=== PATIENT | female | born 1995 | race Caucasian/White ===

== ENCOUNTER 2016-10-30 06:53 | Inpatient (IN) | payer MEDICAID ==
[2016-10-30] MEDS ORDERED: Sodium Chloride 0.9% 10 ML Syringe FLUSH PRN (07:22)
[2016-10-30] MEDS: Lactated Ringers 1,000 ML IV SCH ×3 (07:30→13:31)
[2016-10-30] MEDS ORDERED: Nalbuphine 20 MG/1 ML Amp IVPUSH PRN (08:10)
[2016-10-30] MEDS ORDERED: diphenhydrAMINE 50 MG/ML SDV IVPUSH PRN (08:13)
[2016-10-30] MEDS ORDERED: ePHEDrine 50 MG/ML SDV IVPUSH PRN (08:13)
[2016-10-30] MEDS ORDERED: fentaNYL 100 MCG/2 ML SDV EPIDUR PRN (08:13)
[2016-10-30] MEDS ORDERED: Bupivacaine/fentaNYL/NS 100 ML Bag EPIDUR SCH (08:15)
--- NOTE | 2016-10-30 08:42 | PCM.PREANE ---
Preanesthetic Assessment - Anesthesia/Transfusion/Family Hx Anesthesia History: Prior Anesthesia Without Reaction Family History of Anesthesia Reaction: No Transfusion History: No Prior Transfusion(s) - Review of Systems General: No Symptoms Pulmonary: No Symptoms Cardiovascular: No Symptoms Gastrointestinal: No symptoms Neurological: No Symptoms Other: Reports: None - Physical Assessment O2 Sat by Pulse Oximetry: 99 Respiratory Rate: 18 Blood Pressure: 113/53 Vital Signs: Last Vital Signs Temp 98.6 F 10/30/16 07:22 Pulse 78 10/30/16 07:22 Resp 18 10/30/16 07:22 BP 127/68 10/30/16 07:22 Pulse Ox Height: 5 ft 1 in Weight: 75.977 kg ASA Class: 2 Mental Status: Alert & Oriented x3 Airway Class: Mallampati = 2 Dentition: Reports: Normal Dentition Thyro-Mental Finger Breadths: 3 Mouth Opening Finger Breadths: 3 ROM/Head Extension: Full Lungs: Clear to auscultation, Normal respiratory effort Cardiovascular: Regular Rate, Regular Rhythm - Lab Values: Laboratory Last Values WBC 9.33 K/mm3 (3.98-10.04) 10/30/16 07:55 RBC 3.90 M/mm3 (3.98-5.22) L 10/30/16 07:55 Hgb 11.9 gm/L (11.2-15.7) 10/30/16 07:55 Hct 35.9 % (34.1-44.9) 10/30/16 07:55 MCV 92.1 fl (79.4-94.8) 10/30/16 07:55 MCH 30.5 pg (25.6-32.2) 10/30/16 07:55 MCHC 33.1 g/dl (32.2-35.5) 10/30/16 07:55 RDW Std Deviation 47.0 fL (36.4-46.3) H 10/30/16 07:55 Plt Count 199 K/mm3 (182-369) 10/30/16 07:55 MPV 10.3 fl (9.4-12.3) 10/30/16 07:55 Blood Type AB POSITIVE 10/30/16 07:55 - Allergies Allergies/Adverse Reactions: Allergies Allergy/AdvReac Type Severity Reaction Status Date / Time No Known Allergies Allergy Verified 10/30/16 07:37 - Blood Blood Available: No - Acknowledgements Anesthesia Type Planned: Epidural Pt an Appropriate Candidate for the Planned Anesthesia: Yes Alternatives and Risks of Anesthesia Discussed w Pt/Guardian: Yes Pt/Guardian Understands and Agrees with Anesthesia Plan: Yes PreAnesthesia Questionnaire Cardiovascular History: Reports: None Respiratory History: Reports: None 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: Reports: GERD (with preg) : 2 (40 weeks) Para: 1 Musculoskeletal History: Reports: None Oncologic (Cancer) History: Reports: None - History Comment History Comment: vits and iron for home meds - SUBSTANCE USE Smoking Status *Q: Former Smoker (quit 3 years ago) Tobacco Use Within Last Twelve Months: No Second Hand Smoke Exposure: Yes Days Per Week of Alcohol Use: 0 Recreational Drug Use History: No - CURRENT (IN HOUSE) MEDS Current Meds: Current Medications Diphenhydramine HCl (Benadryl) 25 mg IVPUSH Q6H PRN PRN Reason: pruritis Ephedrine Sulfate (Ephedrine Sulfate) 5 mg IVPUSH ASDIRECTED PRN PRN Reason: Hypotension Fentanyl (Sublimaze) 100 mcg EPIDUR Q3H PRN PRN Reason: Pain Last Admin: 10/30/16 08:37 Dose: 100 mcg Fentanyl/Bupivacaine HCl (Fentanyl/Bupivacaine/Ns 2 Mcg-0.125% 100 Ml) 100 ml EPIDUR ASDIRECTED [facility] Last Admin: 10/30/16 08:37 Dose: 100 ml Lactated Ringer's (Ringers, Lactated) 1,000 mls @ 100 mls/hr IV ASDIRECTED [facility] Last Admin: 10/30/16 07:30 Dose: 100 mls/hr Nalbuphine HCl (Nubain) 10 mg IVPUSH Q2H PRN PRN Reason: Pain (moderate 4-6) Sodium Chloride (Saline Flush) 10 ml FLUSH ASDIRECTED PRN PRN Reason: Keep Vein Open Preanesthetic Assessment - PHYSICAL ASSESSMENT RR: 18 Vital Signs: Last Vital Signs Temp 98.6 F 10/30/16 07:22 Pulse 78 10/30/16 07:22 Resp 18 10/30/16 07:22 BP 127/68 10/30/16 07:22 Pulse Ox Height: 5 ft 1 in Weight: 75.977 kg - LAB Values: Laboratory Last Values WBC 9.33 K/mm3 (3.98-10.04) 10/30/16 07:55 RBC 3.90 M/mm3 (3.98-5.22) L 10/30/16 07:55 Hgb 11.9 gm/L (11.2-15.7) 10/30/16 07:55 Hct 35.9 % (34.1-44.9) 10/30/16 07:55 MCV 92.1 fl (79.4-94.8) 10/30/16 07:55 MCH 30.5 pg (25.6-32.2) 10/30/16 07:55 MCHC 33.1 g/dl (32.2-35.5) 10/30/16 07:55 RDW Std Deviation 47.0 fL (36.4-46.3) H 10/30/16 07:55 Plt Count 199 K/mm3 (182-369) 10/30/16 07:55 MPV 10.3 fl (9.4-12.3) 10/30/16 07:55 Blood Type AB POSITIVE 10/30/16 07:55 - ALLERGIES Allergies/Adverse Reactions: Allergies Allergy/AdvReac Type Severity Reaction Status Date / Time No Known Allergies Allergy Verified 10/30/16 07:37
[2016-10-30] MEDS ORDERED: Oxytocin/Lactated Ringers 10 UNIT/1,000 ML BAG IV SCH (11:00)
--- NOTE | 2016-10-30 14:12 | PCM.LDHP ---
L&D History of Present Illness - General Date of Service: 10/30/16 Admit Problem/Dx: Patient Status Order with Admit Dx/Problem 10/30/16 07:35 Patient Status [ADT] Routine Admission Diagnosis/Problem Admission Diagnosis/Problem Source of Information: Patient History Limitations: Reports: No limitations - History of Present Illness Introduction:: 21 year old at 40w0d here in active labor with some bloody show. 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: Musculoskeletal History: Reports: None Oncologic (Cancer) History: Reports: None - Infectious Disease History Infectious Disease History: Reports: Chicken pox - History Comment History Comment: vits and iron for home meds Social & Family History - Tobacco Use Smoking Status *Q: Former Smoker (quit 3 years ago) Years of Tobacco use: 2 Packs/Tins Daily: 0.2 Used Tobacco, but Quit: Yes Month Tobacco Last Used: 03/02/2016 Second Hand Smoke Exposure: Yes - Caffeine Use Caffeine Use: Reports: Coffee Other Caffeine Use: one cup per week - Alcohol Use Days Per Week of Alcohol Use: 0 - Recreational Drug Use Recreational Drug Use: No H&P Review of Systems - Review of Systems: Review Of Systems: See Below General: Reports: no symptoms HEENT: Reports: no symptoms Pulmonary: Reports: No Symptoms Cardiovascular: Reports: no symptoms Gastrointestinal: Reports: No symptoms Genitourinary: Reports: no symptoms Musculoskeletal: Reports: no symptoms Skin: Reports: no symptoms Psychiatric: Reports: no symptoms Neurological: Reports: No Symptoms Hematologic/Lymphatic: Reports: no symptoms Immunologic: Reports: no symptoms L&D Exam - Exam Exam: See Below - Vital Signs Vital Signs: Last Vital Signs Temp 37.0 C 10/30/16 07:22 Pulse 78 10/30/16 07:22 Resp 18 10/30/16 08:42 BP 113/53 L 10/30/16 08:42 Pulse Ox 99 10/30/16 08:42 Weight: 75.977 kg - OB Specific Contraction Intensity: Moderate movement: active heart tones: present - Stephen Score Stephen Score Cervix Position: Midposition Stephen Score Consistency: Medium Stephen Score Effacement: 51-70% Stephen Score Dilation: 3-4 cm Stephen Score Infant's Station: -1 ,0 Stephen Score Total: 8 - Exam General: alert HEENT: Conjunctiva clear Neck: supple, trachea midline Cardiovascular: regular rate, regular rhythm Abdomen: normal bowel sounds, soft Genitourinary: Normal external exam Back Exam: normal inspection Extremities: normal inspection Skin: warm, dry, intact Neurological: cranial nerves intact, reflexes equal bilateral DTR: 1+: achilles (R) Psychiatric: alert, normal affect, normal mood - Patient Data Lab Results last 24 hrs: Laboratory Results - last 24 hr 10/30/16 10/30/16 Range/Units 07:55 07:55 WBC 9.33 (3.98-10.04) K/mm3 RBC 3.90 L (3.98-5.22) M/mm3 Hgb 11.9 (11.2-15.7) gm/L Hct 35.9 (34.1-44.9) % MCV 92.1 (79.4-94.8) fl MCH 30.5 (25.6-32.2) pg MCHC 33.1 (32.2-35.5) g/dl RDW Std Deviation 47.0 H (36.4-46.3) fL Plt Count 199 (182-369) K/mm3 MPV 10.3 (9.4-12.3) fl Blood Type AB POSITIVE Gel Antibody Screen Negative Result Diagrams: 10/30/16 07:55 Problem List Initiated/Reviewed/Updated: Yes Orders Last 24hrs: Active Orders 24 hr Category Date Time Status Patient Status [ADT] Routine ADT 10/30/16 07:35 Active Activity as Tolerated [RC] PFP Care 10/30/16 07:22 Active Communication Order [RC] ASDIRECTED Care 10/30/16 07:22 Active Heart Tones [RC] ASDIRECTED Care 10/30/16 07:22 Active Notify Provider [RC] ASDIRECTED Care 10/30/16 08:13 Active Notify Provider [RC] PFP Care 10/30/16 07:22 Active Notify Provider [RC] PRN Care 10/30/16 07:22 Active Peripheral IV Care [RC] . DIRECTED Care 10/30/16 07:22 Active Vital Signs [RC] PER UNIT ROUTINE Care 10/30/16 07:22 Active Regular Diet [DIET] Diet 10/30/16 Breakfast Active PATIENT RETYPE [BBK] Stat Lab 10/30/16 07:55 Results TYPE AND SCREEN [BBK] Stat Lab 10/30/16 07:55 Results Bupivacaine/fentaNYL/NS [fentaNYL/Bupivacaine/NS 2 MCG- Med 10/30/16 08:15 Active 0.125% 100 ML] 100 ml EPIDUR ASDIRECTED Lactated Ringers [Ringers, Lactated] 1,000 ml Med 10/30/16 07:30 Active IV ASDIRECTED Nalbuphine [Nubain] Med 10/30/16 08:10 Active 10 mg IVPUSH Q2H PRN Oxytocin/Lactated Ringers [Pitocin in LR 10 Units/1,000 Med 10/30/16 11:00 Active ML] 10 unit in 1,000 ml IV TITRATE Sodium Chloride 0.9% [Saline Flush] Med 10/30/16 07:22 Active 10 ml FLUSH ASDIRECTED PRN diphenhydrAMINE [Benadryl] Med 10/30/16 08:13 Active 25 mg IVPUSH Q6H PRN ePHEDrine [ePHEDrine Sulfate] Med 10/30/16 08:13 Active 5 mg IVPUSH ASDIRECTED PRN fentaNYL [Sublimaze] Med 10/30/16 08:13 Active 100 mcg EPIDUR Q3H PRN Electronic Heart Tones Ext w TOCO [WOMSER] Oth 10/30/16 07:22 Ordered Routine Electronic Heart Tones Internal [WOMSER] Per Unit Oth 10/30/16 07:22 Ordered Routine Peripheral IV Insertion Adult [OM.PC] Routine Oth 10/30/16 07:22 Ordered Resuscitation Status Routine Resus Stat 10/30/16 07:22 Ordered Medication Orders Diphenhydramine HCl (Benadryl) 25 mg IVPUSH Q6H PRN PRN Reason: pruritis Ephedrine Sulfate (Ephedrine Sulfate) 5 mg IVPUSH ASDIRECTED PRN PRN Reason: Hypotension Fentanyl (Sublimaze) 100 mcg EPIDUR Q3H PRN PRN Reason: Pain Last Admin: 10/30/16 08:37 Dose: 100 mcg Fentanyl/Bupivacaine HCl (Fentanyl/Bupivacaine/Ns 2 Mcg-0.125% 100 Ml) 100 ml EPIDUR ASDIRECTED [facility] Last Admin: 10/30/16 08:37 Dose: 100 ml Lactated Ringer's (Ringers, Lactated) 1,000 mls @ 100 mls/hr IV ASDIRECTED [facility] Last Admin: 10/30/16 13:31 Dose: 100 mls/hr Infusion: 10/30/16 13:31 Dose: 100 mls/hr Admin: 10/30/16 09:21 Dose: 100 mls/hr Infusion: 10/30/16 09:21 Dose: 100 mls/hr Admin: 10/30/16 07:30 Dose: 100 mls/hr Oxytocin/Lactated Ringer's (Pitocin In Lr 10 Units/1,000 Ml) 10 unit in 1,000 mls @ 500 mls/hr IV TITRATE [facility] PRN Reason: Protocol Last Admin: 10/30/16 13:43 Dose: 500 ml/hr, 500 mls/hr Nalbuphine HCl (Nubain) 10 mg IVPUSH Q2H PRN PRN Reason: Pain (moderate 4-6) Sodium Chloride (Saline Flush) 10 ml FLUSH ASDIRECTED PRN PRN Reason: Keep Vein Open Assessment/Plan Comment:: Term labor.
[2016-10-30] MEDS ORDERED: Benzocaine/Menthol 20%-0.5% Spray 56 GM Canister TOP PRN (14:39)
[2016-10-30] MEDS ORDERED: Docusate Sodium 100 MG Cap PO PRN (14:39)
[2016-10-30] MEDS ORDERED: Lanolin 100% Cream 7 GM Tube TOP PRN (14:39)
[2016-10-30] MEDS ORDERED: Witch Hazel Medicated Pads 100/Jar TOP PRN (14:39)
[2016-10-30] MEDS: Ibuprofen 600 MG Tab PO PRN (16:21)
[2016-10-30] MEDS ORDERED: Bupivacaine 0.25% 10 ML SDV ONE (22:22)
[2016-10-31] MEDS: Ibuprofen 600 MG Tab PO PRN ×2 (00:55→12:04)
--- NOTE | 2016-10-31 07:31 | PCM48HPAN ---
Post Anesthesia Note - EVALUATION WITHIN 48HRS OF ANESTHETIC Vital Signs in Normal Range: Yes Patient Participated in Evaluation: Yes Respiratory Function Stable: Yes Airway Patent: Yes Cardiovascular Function Stable: Yes Hydration Status Stable: Yes Pain Control Satisfactory: Yes Nausea and Vomiting Control Satisfactory: Yes Mental Status Recovered: Yes
--- NOTE | 2016-10-31 08:22 | PCM.DCSUM1 ---
Discharge Summary - Discharge Data Discharge Date: 10/31/16 Discharge Disposition: Home, Self-Care 01 Condition: Good - Patient Summary/Data Operative Procedure(s) Performed: Hospital Course: Admitted in labor. Unremarkable delivery and - Patient Instructions Diet: Usual Diet as Tolerated Activity: No Strenuous Activities Activity, Other: pelvic rest Driving: May Drive Today Showering/Bathing: May Shower Notify Provider of: Fever, Increased Pain, Swelling and Redness, Drainage, Nausea and/or Vomiting - Discharge Plan Home Medications: Home Meds Vits #90/Iron Fum/FA [ Formula] 10/30/16 [History] Referrals: Maricel Mcgregor MD [Physician] - (6 weeks) - Discharge Summary/Plan Comment DC Time >30 min.: No - Patient Data Vitals - Most Recent: Last Vital Signs Temp 36.7 C 10/31/16 04:34 Pulse 72 10/31/16 04:34 Resp 16 10/31/16 04:34 BP 125/74 10/31/16 04:34 Pulse Ox 96 10/31/16 04:34 Weight - Most Recent: 75.977 kg Lab Results - Last 24 hrs: Laboratory Results - last 24 hr 10/30/16 Range/Units 07:55 Blood Type AB POSITIVE Gel Antibody Screen Negative Med Orders - Current: Current Medications Benzocaine/Menthol (Dermoplast Pain Relief [place]) 0 gm TOP ASDIRECTED PRN PRN Reason: Perineal Comfort Measure Last Admin: 10/30/16 15:54 Dose: 1 applic Docusate Sodium (Colace) 100 mg PO BID PRN PRN Reason: Constipation Emollient Ointment (Lansinoh Hpa) 0 gm TOP ASDIRECTED PRN PRN Reason: Sore Nipples Last Admin: 10/30/16 20:01 Dose: 1 tube Ibuprofen (Motrin) 600 mg PO Q6H PRN PRN Reason: Mild pain or fever Last Admin: 10/31/16 00:55 Dose: 600 mg Witch Katelin (Tucks) 1 pad TOP ASDIRECTED PRN PRN Reason: Hemorrhoid pain Last Admin: 10/30/16 15:54 Dose: 1 applic Discontinued Medications Diphenhydramine HCl (Benadryl) 25 mg IVPUSH Q6H PRN PRN Reason: pruritis Ephedrine Sulfate (Ephedrine Sulfate) 5 mg IVPUSH ASDIRECTED PRN PRN Reason: Hypotension Fentanyl (Sublimaze) 100 mcg EPIDUR Q3H PRN PRN Reason: Pain Last Admin: 10/30/16 08:37 Dose: 100 mcg Fentanyl/Bupivacaine HCl (Fentanyl/Bupivacaine/Ns 2 Mcg-0.125% 100 Ml) 100 ml EPIDUR ASDIRECTED [facility] Last Admin: 10/30/16 08:37 Dose: 100 ml Lactated Ringer's (Ringers, Lactated) 1,000 mls @ 100 mls/hr IV ASDIRECTED [facility] Last Admin: 10/30/16 13:31 Dose: 100 mls/hr Oxytocin/Lactated Ringer's (Pitocin In Lr 10 Units/1,000 Ml) 10 unit in 1,000 mls @ 500 mls/hr IV TITRATE [facility] PRN Reason: Protocol Last Admin: 10/30/16 13:43 Dose: 500 ml/hr, 500 mls/hr Nalbuphine HCl (Nubain) 10 mg IVPUSH Q2H PRN PRN Reason: Pain (moderate 4-6) Sodium Chloride (Saline Flush) 10 ml FLUSH ASDIRECTED PRN PRN Reason: Keep Vein Open *Q Meaningful Use (DIS) - VTE *Q VTE Criteria *Q: - Stroke *Q Stroke Criteria *Q: - AMI *Q AMI Criteria *Q:
[2016-10-31 12:08] VITALS: BP 118/69
== END 2016-10-31 15:15 | disposition home or self-care (01) | DRG 775 ==
LOC: JD.OBCHECK 06:53 → JD.OB 06:55 → JD.OBCHECK 07:34 → OBSVTOIN 13:41 → JD.OB 13:41
PROVIDERS: ADMIT Obstetrics & Gynecology; ATTEND Obstetrics & Gynecology
PROC: 10E0XZZ Delivery of Products of Conception, External Approach (ICD-10-PCS; principal; 2016-10-30)
PROC: 10907ZC Drainage of Amniotic Fluid, Therapeutic from Products of Conception, Via Natural or Artificial Opening (ICD-10-PCS; 2016-10-30)
PROC: 00HU33Z Insertion of Infusion Device into Spinal Canal, Percutaneous Approach (ICD-10-PCS; 2016-10-30)
PROC: 3E0R3CZ (ICD-10-PCS; 2016-10-30)
DX: O80 Encounter for full-term uncomplicated delivery (principal); Z3A.40 40 weeks gestation of pregnancy; Z37.0 Single live birth; Z87.891 Personal history of nicotine dependence
CPT/HCPCS: 01967; 36415; 85027; 86850; 86900; 86901; A9270-GY; J2590; J3010; J7120

== ENCOUNTER 2021-07-07 14:15 | Inpatient (IN) | payer OTHER ==
[~2021-07-07 14:15] MED LIST: Bupivacaine 0.25% 10 ML SDV ONE; Lidocaine 1.5% with EPINEPHrine 1:200,000 5 ML Amp ONE
[2021-07-07] MEDS ORDERED: Nalbuphine 10 MG/1 ML Vial IVPUSH PRN (14:20)
[2021-07-07] MEDS ORDERED: Lidocaine 1% 50 ML MDV INJECT ONE (14:20)
[2021-07-07] MEDS ORDERED: Ondansetron 4 MG/2 ML SDV IVPUSH PRN (14:20)
[2021-07-07] MEDS ORDERED: Sodium Chloride 0.9% 10 ML Syringe FLUSH PRN (14:20)
[2021-07-07] MEDS ORDERED: fentaNYL 100 MCG/2 ML SDV EPIDUR PRN (14:25)
[2021-07-07] MEDS ORDERED: Bupivacaine/fentaNYL/NS 100 ML Bag EPIDUR PRN (14:25)
[2021-07-07] MEDS ORDERED: diphenhydrAMINE 50 MG/ML SDV IVPUSH PRN (14:25)
[2021-07-07] MEDS ORDERED: ePHEDrine 50 MG/ML SDV IVPUSH PRN (14:25)
--- NOTE | 2021-07-07 14:27 | PCM.PREANE ---
Preanesthetic Assessment - Anesthesia/Transfusion/Family Hx Anesthesia History: Prior Anesthesia Without Reaction Transfusion History: No Prior Transfusion(s) - Review of Systems General: No Symptoms Pulmonary: No Symptoms Cardiovascular: No Symptoms Gastrointestinal: No Symptoms Neurological: No Symptoms Other: Reports: None - Physical Assessment ASA Class: 2 Mental Status: Alert & Oriented x3 Airway Class: Mallampati = 3 Dentition: Reports: Normal Dentition Thyro-Mental Finger Breadths: 3 Mouth Opening Finger Breadths: 3 ROM/Head Extension: Full Lungs: Clear to Auscultation, Normal Respiratory Effort Cardiovascular: Regular Rate, Regular Rhythm - Lab Values: Laboratory Last Values WBC 6.46 K/mm3 (3.98-10.04) 07/07/21 13:04 RBC 4.01 M/mm3 (3.98-5.22) 07/07/21 13:04 Hgb 12.8 gm/dl (11.2-15.7) 07/07/21 13:04 Hct 38.0 % (34.1-44.9) 07/07/21 13:04 MCV 94.8 fl (79.4-94.8) 07/07/21 13:04 MCH 31.9 pg (25.6-32.2) 07/07/21 13:04 MCHC 33.7 g/dl (32.2-35.5) 07/07/21 13:04 RDW Std Deviation 43.0 fL (36.4-46.3) 07/07/21 13:04 Plt Count 204 K/mm3 (182-369) 07/07/21 13:04 MPV 9.9 fl (9.4-12.3) 07/07/21 13:04 - Allergies Allergies/Adverse Reactions: Allergies Allergy/AdvReac Type Severity Reaction Status Date / Time No Known Allergies Allergy Verified 07/06/21 00:21 - Acknowledgements Anesthesia Type Planned: Epidural Pt an Appropriate Candidate for the Planned Anesthesia: Yes Alternatives and Risks of Anesthesia Discussed w Pt/Guardian: Yes Pt/Guardian Understands and Agrees with Anesthesia Plan: Yes PreAnesthesia Questionnaire - Past Health History Medical/Surgical History: Denies Medical/Surgical History Cardiovascular History: Reports: None Respiratory History: Reports: None 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: Reports: GERD 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: Musculoskeletal History: Reports: None Oncologic (Cancer) History: Reports: None - Infectious Disease History Infectious Disease History: Reports: Chicken Pox - Past Surgical History HEENT Surgical History: Reports: Oral Surgery Other HEENT Surgeries/Procedures: [place] teeth extraction - History Comment History Comment: vits and iron for home meds - HOME MEDS Home Medications: Home Meds Vit 90/Iron Fum/Folic [ Formula] 1 tab PO DAILY 10/30/16 [History] - CURRENT (IN HOUSE) MEDS Current Meds: Current Medications Diphenhydramine HCl (Diphenhydramine 50 Mg/Ml Sdv) 25 mg IVPUSH Q6H PRN PRN Reason: pruritis Ephedrine Sulfate (Ephedrine 50 Mg/Ml Sdv) 5 mg IVPUSH ASDIRECTED PRN PRN Reason: Hypotension Fentanyl (Fentanyl 100 Mcg/2 Ml Sdv) 100 mcg EPIDUR Q3H PRN PRN Reason: Pain Fentanyl/Bupivacaine HCl (Bupivacaine/Fentanyl/Ns 100 Ml Bag) 100 ml EPIDUR ASDIRECTED PRN PRN Reason: Pain
[2021-07-07] MEDS ORDERED: Oxytocin/Lactated Ringers 10 UNIT/1,000 ML BAG IV SCH ×2 (14:30)
[2021-07-07] MEDS: Lactated Ringers 1,000 ML IV SCH ×3 (14:40→18:55)
--- NOTE | 2021-07-07 16:48 | PCM.LDHP ---
L&D History of Present Illness - General Date of Service: 07/07/21 Admit Problem/Dx: Patient Status Order with Admit Dx/Problem 07/07/21 14:22 Patient Status [ADT] Routine Admission Diagnosis/Problem Admission Diagnosis/Problem 39 weeks gestation of Source of Information: Patient History Limitations: Reports: No Limitations - History of Present Illness Introduction:: Patient is a 26 y/o at 39 6/7 wks who presents for IOL. Doing well. Currently rates contractions as a 2/10 after starting pitocin around 1430. 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: 2 LMP (Approximate): Hematologic History: Reports: Anemia - Infectious Disease History Infectious Disease History: Reports: Chicken Pox - Past Surgical History HEENT Surgical History: Reports: Oral Surgery Other HEENT Surgeries/Procedures: [place] teeth extraction Social & Family History - Family History Family Medical History: No Pertinent Family History - Tobacco Use Tobacco Use Status *Q: Former Tobacco User Years of Tobacco use: 2 Packs/Tins Daily: 0.2 Used Tobacco, but Quit: Yes Month/Year Tobacco Last Used: 02/2016 - Caffeine Use Caffeine Use: Reports: Coffee Other Caffeine Use: one cup per week - Alcohol Use Alcohol Use History: No - Recreational Drug Use Recreational Drug Use: No H&P Review of Systems - Review of Systems: Review Of Systems: See Below General: Reports: No Symptoms Pulmonary: Reports: No Symptoms Cardiovascular: Reports: No Symptoms Gastrointestinal: Reports: No Symptoms Genitourinary: Reports: No Symptoms Musculoskeletal: Reports: No Symptoms Neurological: Reports: No Symptoms L&D Exam - Exam Exam: See Below - Vital Signs Vital Signs: Last Vital Signs Temp 36.7 C 07/07/21 14:20 Pulse 107 H 07/07/21 14:20 Resp 16 07/07/21 14:20 BP 124/62 07/07/21 14:20 Pulse Ox 97 07/07/21 14:20 Weight: 82.1 kg - OB Specific Contraction Intensity: Mild to Moderate Movement: Active Heart Tones: Present Heart Tones per Min: 135 Heart Rate (FHR) Variability: Moderate (6-25 bpm) Presentation: Vertex - Stephen Score Stephen Score Cervix Position: Midposition Stephen Score Consistency: Soft Stephen Score Effacement: >80% Stephen Score Dilation: > 5 cm Stephen Score Infant's Station: -2 Stephen Score Total: 10 - Exam General: Alert, Oriented, Cooperative Lungs: Clear to Auscultation, Normal Respiratory Effort Cardiovascular: Regular Rate, Regular Rhythm GI/Abdominal Exam: Soft, Non-Tender Genitourinary: Normal external exam Extremities: Normal Inspection Skin: Warm, Dry, Intact - Patient Data Lab Results Last 24 hrs: Laboratory Results - last 24 hr 07/07/21 07/07/21 07/07/21 Range/Units 13:04 13:04 14:20 WBC 6.46 (3.98-10.04) K/mm3 RBC 4.01 (3.98-5.22) M/mm3 Hgb 12.8 (11.2-15.7) gm/dl Hct 38.0 (34.1-44.9) % MCV 94.8 (79.4-94.8) fl MCH 31.9 (25.6-32.2) pg MCHC 33.7 (32.2-35.5) g/dl RDW Std Deviation 43.0 (36.4-46.3) fL Plt Count 204 (182-369) K/mm3 MPV 9.9 (9.4-12.3) fl SARS-CoV-2 RNA (MERLY) Negative (NEGATIVE) Blood Type AB POSITIVE Gel Antibody Screen Negative Result Diagrams: 07/07/21 13:04 - Problem List (1) 39 weeks gestation of SNOMED Code(s): 55353297 ICD Code: Z3A.39 - 39 WEEKS GESTATION OF Status: Acute Current Visit: Yes Problem List Initiated/Reviewed/Updated: Yes Orders Last 24hrs: Active Orders 24 hr Category Date Time Status Patient Status [ADT] Routine ADT 07/07/21 14:22 Active Activity as Tolerated [RC] PFP Care 07/07/21 14:20 Active Communication Order [RC] ASDIRECTED Care 07/07/21 14:20 Active Notify Provider [RC] ASDIRECTED Care 07/07/21 14:25 Active Notify Provider [RC] PFP Care 07/07/21 14:20 Active Notify Provider [RC] PRN Care 07/07/21 14:20 Active Peripheral IV Care [RC] . DIRECTED Care 07/07/21 14:23 Active Vital Signs [RC] PER UNIT ROUTINE Care 07/07/21 14:20 Active Regular Diet [DIET] Diet 07/07/21 Lunch Active Bupivacaine/fentaNYL/NS [fentaNYL/Bupivacaine/NS 2 MCG- Med 07/07/21 14:25 Active 0.125% 100 ML] 100 ml EPIDUR ASDIRECTED PRN Lactated Ringers [Ringers, Lactated] 1,000 ml Med 07/07/21 14:30 Active IV ASDIRECTED Nalbuphine [Nubain] Med 07/07/21 14:20 Active 10 mg IVPUSH Q2H PRN Ondansetron [Zofran] Med 07/07/21 14:20 Active 4 mg IVPUSH Q4H PRN Oxytocin/Lactated Ringers [Pitocin in LR 10 Units/1,000 Med 07/07/21 14:30 Active ML] 10 unit in 1,000 ml IV .CONTINUOUS Oxytocin/Lactated Ringers [Pitocin in LR 10 Units/1,000 Med 07/07/21 14:30 Active ML] 10 unit in 1,000 ml IV TITRATE Sodium Chloride 0.9% [Saline Flush] Med 07/07/21 14:20 Active 10 ml FLUSH ASDIRECTED PRN diphenhydrAMINE [Benadryl] Med 07/07/21 14:25 Active 25 mg IVPUSH Q6H PRN ePHEDrine [ePHEDrine sulfate] Med 07/07/21 14:25 Active 5 mg IVPUSH ASDIRECTED PRN fentaNYL [Sublimaze] Med 07/07/21 14:25 Active 100 mcg EPIDUR Q3H PRN Electronic Heart Tones Ext w TOCO [WOMSER] Oth 07/07/21 14:20 Ordered Routine Electronic Heart Tones Internal [WOMSER] Per Unit Oth 07/07/21 14:20 Ordered Routine Peripheral IV Insertion Adult [OM.PC] Routine Oth 07/07/21 14:20 Ordered Resuscitation Status Routine Resus Stat 07/07/21 14:20 Ordered Medication Orders Diphenhydramine HCl (Diphenhydramine 50 Mg/Ml Sdv) 25 mg IVPUSH Q6H PRN PRN Reason: pruritis Ephedrine Sulfate (Ephedrine 50 Mg/Ml Sdv) 5 mg IVPUSH ASDIRECTED PRN PRN Reason: Hypotension Fentanyl (Fentanyl 100 Mcg/2 Ml Sdv) 100 mcg EPIDUR Q3H PRN PRN Reason: Pain Fentanyl/Bupivacaine HCl (Bupivacaine/Fentanyl/Ns 100 Ml Bag) 100 ml EPIDUR ASDIRECTED PRN PRN Reason: Pain Lactated Ringer's (Ringers, Lactated) 1,000 mls @ 100 mls/hr IV ASDIRECTED SON Last Admin: 07/07/21 14:40 Dose: 100 mls/hr Documented by: [email or web address] Oxytocin/Lactated Ringer's (Pitocin In Lr 10 Units/1,000 Ml) 10 unit in 1,000 mls @ 500 mls/hr IV .CONTINUOUS SON Oxytocin/Lactated Ringer's (Pitocin In Lr 10 Units/1,000 Ml) 10 unit in 1,000 mls @ 12 mls/hr IV TITRATE SON; Protocol Last Admin: 07/07/21 14:40 Dose: 2 munits/min, 12 mls/hr Documented by: FICEKEL Nalbuphine HCl (Nalbuphine 10 Mg/1 Ml Vial) 10 mg IVPUSH Q2H PRN PRN Reason: Pain Ondansetron HCl (Ondansetron 4 Mg/2 Ml Sdv) 4 mg IVPUSH Q4H PRN PRN Reason: Nausea/Vomiting Sodium Chloride (Sodium Chloride 0.9% 10 Ml Syringe) 10 ml FLUSH ASDIRECTED PRN PRN Reason: Keep Vein Open Assessment/Plan Comment:: * Labs previously done * GBS negative * On pitocin of 2. AROM done with release of large amount of clear fluid * Pain management per patient preference * Anticipate
--- NOTE | 2021-07-07 18:21 | PCM.PNLD ---
Labor Progress Note - VS & Meds Vital Signs: Last Vital Signs Temp 36.7 C 07/07/21 14:20 Pulse 107 H 07/07/21 14:20 Resp 16 07/07/21 14:20 BP 124/62 07/07/21 14:20 Pulse Ox 97 07/07/21 14:20 Active Medications: Current Medications Diphenhydramine HCl (Diphenhydramine 50 Mg/Ml Sdv) 25 mg IVPUSH Q6H PRN PRN Reason: pruritis Ephedrine Sulfate (Ephedrine 50 Mg/Ml Sdv) 5 mg IVPUSH ASDIRECTED PRN PRN Reason: Hypotension Fentanyl (Fentanyl 100 Mcg/2 Ml Sdv) 100 mcg EPIDUR Q3H PRN PRN Reason: Pain Last Admin: 07/07/21 17:16 Dose: 100 mcg Documented by: Fentanyl/Bupivacaine HCl (Bupivacaine/Fentanyl/Ns 100 Ml Bag) 100 ml EPIDUR ASDIRECTED PRN PRN Reason: Pain Last Admin: 07/07/21 17:16 Dose: 100 ml Documented by: Lactated Ringer's (Ringers, Lactated) 1,000 mls @ 100 mls/hr IV ASDIRECTED SON Last Admin: 07/07/21 17:15 Dose: 100 mls/hr Documented by: Oxytocin/Lactated Ringer's (Pitocin In Lr 10 Units/1,000 Ml) 10 unit in 1,000 mls @ 500 mls/hr IV .CONTINUOUS SON Oxytocin/Lactated Ringer's (Pitocin In Lr 10 Units/1,000 Ml) 10 unit in 1,000 mls @ 12 mls/hr IV TITRATE SON; Protocol Last Titration: 07/07/21 17:15 Dose: 0 munits/min, 0 mls/hr Documented by: Nalbuphine HCl (Nalbuphine 10 Mg/1 Ml Vial) 10 mg IVPUSH Q2H PRN PRN Reason: Pain Ondansetron HCl (Ondansetron 4 Mg/2 Ml Sdv) 4 mg IVPUSH Q4H PRN PRN Reason: Nausea/Vomiting Sodium Chloride (Sodium Chloride 0.9% 10 Ml Syringe) 10 ml FLUSH ASDIRECTED PRN PRN Reason: Keep Vein Open Discontinued Medications Lidocaine HCl (Lidocaine 1% 50 Ml Mdv) 50 ml INJECT ONETIME ONE Stop: 07/07/21 14:21 - Uterine Contractions Uterine Monitoring Mode: External [place] Contraction Intensity: Moderate to Strong - Monitoring Monitor Mode: External Ultrasound Heart Rate (FHR) Baseline: 130 Heart Rate (FHR) Variability: Moderate (6-25 bpm) Accelerations: Present, 15x15 Decelerations: None Strip Review: Category I - Vaginal Exam Dilation (cm): 6 - Labor Progress (Free Text) Labor Progress: Doing well. Had to do a second epidural attempt and was getting very uncomfortable. Now getting some relief.
--- NOTE | 2021-07-07 20:54 | PCM.DEL ---
L & D Note - General Info Date of Service: 07/07/21 - Delivery Note Labor: Induced by ARM, Induced by Oxytocin Delivery Outcome: Livebirth Infant Delivery Method: Spontaneous Vaginal Delivery-Single Infant Delivery Mode: Spontaneous Presentation: Right Occiput Anterior (ESPERANZA) Nuchal Cord: None Anesthesia Type: Epidural Amniotic Fluid Description: Clear Episiotomy Type: None Laceration: None Placenta: Intact, Spontaneous Cord: 3 Vessels Estimated Blood Loss: 100 Resuscitation Needed: Yes [place]: Bulb Syringe, Stimulated, Warmed, [place] Used, Warmer Used Delivery Comments (Free Text/Narrative):: Patient found to be complete and began pushing. With maternal pushing effort head delivered from ESPERANZA presentation. With gentle downward traction shoulders did not delivery. Patient put in [place] and downward pressure reapplied, but without delivery. Patient kept in McRobert's and suprapubic pressure applied. On 2nd application anterior shoulder delivered and remainder of quickly followed. Infant placed on maternal abdomen. Cord clamped and cut. Cord blood obtained. Placenta allowed time to separate and expelled intact. Inspection of perineum following delivery with no lacerations. - General Info Date of Service: 07/07/21 - Patient Data Vitals - Most Recent: Last Vital Signs Temp 36.7 C 07/07/21 14:20 Pulse 107 H 07/07/21 14:20 Resp 16 07/07/21 14:20 BP 124/62 07/07/21 14:20 Pulse Ox 97 07/07/21 14:20 Weight - Most Recent: 82.1 kg - Exam Urinary Catheter Total Time: 0Days 1Hours - Problem List & Annotations (1) 39 weeks gestation of SNOMED Code(s): 48591953 Code(s): Z3A.39 - 39 WEEKS GESTATION OF Status: Acute Current Visit: Yes (2) Shoulder dystocia, delivered, current hospitalization SNOMED Code(s): 175266597, 972660710 Code(s): O66.0 - OBSTRUCTED LABOR DUE TO SHOULDER DYSTOCIA Status: Acute Current Visit: Yes - Problem List Review Problem List Initiated/Reviewed/Updated: Yes - My Orders Last 24 Hours: My Active Orders 07/07/21 Lunch Regular Diet [DIET] 07/07/21 14:20 Activity as Tolerated [RC] PFP Communication Order [RC] ASDIRECTED Notify Provider [RC] PFP Notify Provider [RC] PRN Vital Signs [RC] PER UNIT ROUTINE Nalbuphine [Nubain] 10 mg IVPUSH Q2H PRN Ondansetron [Zofran] 4 mg IVPUSH Q4H PRN Sodium Chloride 0.9% [Saline Flush] 10 ml FLUSH ASDIRECTED PRN Electronic Heart Tones Ext w TOCO [WOMSER] Routine Electronic Heart Tones Internal [WOMSER] Per Unit Routine Peripheral IV Insertion Adult [OM.PC] Routine Resuscitation Status Routine 07/07/21 14:22 Patient Status [ADT] Routine 07/07/21 14:23 Peripheral IV Care [RC] . DIRECTED 07/07/21 14:30 Lactated Ringers [Ringers, Lactated] 1,000 ml IV ASDIRECTED Oxytocin/Lactated Ringers [Pitocin in LR 10 Units/1,000 ML] 10 unit in 1,000 ml IV .CONTINUOUS Oxytocin/Lactated Ringers [Pitocin in LR 10 Units/1,000 ML] 10 unit in 1,000 ml IV TITRATE 07/07/21 20:47 Patient Status Manage Transfer [TRANSFER] Routine - Assessment Assessment:: PPD#0 - Plan Plan:: * Routine cares * Bottle feeding * Discharge home in 2 days
[2021-07-07] MEDS ORDERED: Docusate Sodium 100 MG Cap PO PRN (21:53)
[2021-07-07] MEDS ORDERED: Benzocaine/Menthol 20%-0.5% Spray 78 GM Cannister TOP PRN (21:53)
[2021-07-07] MEDS ORDERED: Acetaminophen 325 MG Tab PO PRN (21:53)
[2021-07-07] MEDS: Ibuprofen 600 MG Tab PO PRN (22:05)
[2021-07-07] MEDS: Witch Hazel Medicated Pads 40/Jar TOP PRN (22:06)
[2021-07-08] MEDS: Ibuprofen 600 MG Tab PO PRN ×3 (05:24→23:35)
--- NOTE | 2021-07-08 06:50 | PCM48HPAN ---
Post Anesthesia Note - EVALUATION WITHIN 48HRS OF ANESTHETIC Vital Signs in Normal Range: Yes Patient Participated in Evaluation: Yes Respiratory Function Stable: Yes Airway Patent: Yes Cardiovascular Function Stable: Yes Hydration Status Stable: Yes Pain Control Satisfactory: Yes Nausea and Vomiting Control Satisfactory: Yes Mental Status Recovered: Yes Vital Signs: Last Vital Signs Temp 36.8 C 07/08/21 03:11 Pulse 107 H 07/07/21 14:20 Resp 14 07/08/21 03:11 BP 133/57 L 07/08/21 03:11 Pulse Ox 97 07/07/21 14:20
--- NOTE | 2021-07-08 07:36 | PCM.PNPP ---
- General Info Date of Service: 07/08/21 Functional Status: Reports: Pain Controlled, Tolerating Diet, Ambulating, Urinating - Review of Systems General: Reports: No Symptoms Pulmonary: Reports: No Symptoms Cardiovascular: Reports: No Symptoms Gastrointestinal: Reports: No Symptoms Genitourinary: Reports: No Symptoms Musculoskeletal: Reports: Back Pain, Other (pubic bone pain) - General Info Date of Service: 07/08/21 - Patient Data Vital Signs - Most Recent: Last Vital Signs Temp 36.8 C 07/08/21 03:11 Pulse 107 H 07/07/21 14:20 Resp 14 07/08/21 03:11 BP 133/57 L 07/08/21 03:11 Pulse Ox 97 07/07/21 14:20 Weight - Most Recent: 82.1 kg I&O - Last 24 Hours: Intake & Output 07/07/21 07/08/21 07/08/21 22:59 06:59 14:59 Output Total 300 175 Balance -300 -175 Lab Results - Last 24 Hours: Laboratory Results - last 24 hr 07/07/21 07/07/21 07/07/21 Range/Units 13:04 13:04 13:04 WBC 6.46 (3.98-10.04) K/mm3 RBC 4.01 (3.98-5.22) M/mm3 Hgb 12.8 (11.2-15.7) gm/dl Hct 38.0 (34.1-44.9) % MCV 94.8 (79.4-94.8) fl MCH 31.9 (25.6-32.2) pg MCHC 33.7 (32.2-35.5) g/dl RDW Std Deviation 43.0 (36.4-46.3) fL Plt Count 204 (182-369) K/mm3 MPV 9.9 (9.4-12.3) fl RPR Non-reactive (NONREACTIVE) SARS-CoV-2 RNA (MERLY) (NEGATIVE) Blood Type AB POSITIVE Gel Antibody Screen Negative 07/07/21 Range/Units 14:20 WBC (3.98-10.04) K/mm3 RBC (3.98-5.22) M/mm3 Hgb (11.2-15.7) gm/dl Hct (34.1-44.9) % MCV (79.4-94.8) fl MCH (25.6-32.2) pg MCHC (32.2-35.5) g/dl RDW Std Deviation (36.4-46.3) fL Plt Count (182-369) K/mm3 MPV (9.4-12.3) fl RPR (NONREACTIVE) SARS-CoV-2 RNA (MERLY) Negative (NEGATIVE) Blood Type Gel Antibody Screen Med Orders - Current: Current Medications Acetaminophen (Acetaminophen 325 Mg Tab) 650 mg PO Q4H PRN PRN Reason: mild pain or fever Benzocaine/Menthol (Benzocaine/Menthol 20%-0.5% [place] 78 Gm Cannister) 0 gm TOP ASDIRECTED PRN PRN Reason: Perineal Comfort Measure Last Admin: 07/07/21 22:06 Dose: 1 canister Documented by: Docusate Sodium (Docusate Sodium 100 Mg Cap) 100 mg PO BID PRN PRN Reason: Constipation Ibuprofen (Ibuprofen 600 Mg Tab) 600 mg PO Q6H PRN PRN Reason: Mild pain or fever Last Admin: 07/08/21 05:24 Dose: 600 mg Documented by: Ginna Thomason (Ginna Thomason Medicated Pads 40/Jar) 1 pad TOP ASDIRECTED PRN PRN Reason: Perineal Comfort Measure Last Admin: 07/07/21 22:06 Dose: 1 tub Documented by: Discontinued Medications Diphenhydramine HCl (Diphenhydramine 50 Mg/Ml Sdv) 25 mg IVPUSH Q6H PRN PRN Reason: pruritis Ephedrine Sulfate (Ephedrine 50 Mg/Ml Sdv) 5 mg IVPUSH ASDIRECTED PRN PRN Reason: Hypotension Fentanyl (Fentanyl 100 Mcg/2 Ml Sdv) 100 mcg EPIDUR Q3H PRN PRN Reason: Pain Last Admin: 07/07/21 17:16 Dose: 100 mcg Documented by: Fentanyl/Bupivacaine HCl (Bupivacaine/Fentanyl/Ns 100 Ml Bag) 100 ml EPIDUR ASDIRECTED PRN PRN Reason: Pain Last Admin: 07/07/21 17:16 Dose: 100 ml Documented by: Lactated Ringer's (Ringers, Lactated) 1,000 mls @ 100 mls/hr IV ASDIRECTED SON Last Admin: 07/07/21 18:55 Dose: 100 mls/hr Documented by: Oxytocin/Lactated Ringer's (Pitocin In Lr 10 Units/1,000 Ml) 10 unit in 1,000 mls @ 500 mls/hr IV .CONTINUOUS SON Oxytocin/Lactated Ringer's (Pitocin In Lr 10 Units/1,000 Ml) 10 unit in 1,000 mls @ 12 mls/hr IV TITRATE SON; Protocol Last Titration: 07/07/21 18:54 Dose: 2 munits/min, 12 mls/hr Documented by: Lidocaine HCl (Lidocaine 1% 50 Ml Mdv) 50 ml INJECT ONETIME ONE Stop: 07/07/21 14:21 Last Admin: 07/08/21 05:25 Dose: Not Given Documented by: Nalbuphine HCl (Nalbuphine 10 Mg/1 Ml Vial) 10 mg IVPUSH Q2H PRN PRN Reason: Pain Ondansetron HCl (Ondansetron 4 Mg/2 Ml Sdv) 4 mg IVPUSH Q4H PRN PRN Reason: Nausea/Vomiting Sodium Chloride (Sodium Chloride 0.9% 10 Ml Syringe) 10 ml FLUSH ASDIRECTED PRN PRN Reason: Keep Vein Open - Infant Interaction Disposition, : [place] in Room with Family Infant Interaction: Holding Infant Infant Feeding: Bottle Fed Infant Support Person: - Recovery Exam Fundal Tone: Firm Fundal Level: 1 Fingerbreadths Below Umbilicus Fundal Placement: Midline Lochia Amount: Small Lochia Color: Rubra/Red Perineum Description: Intact, Minimal Bruising/Swelling Bladder Status: Voiding - Exam General: Alert, Oriented, Cooperative GI/Abdominal Exam: Soft, Non-Tender - Problem List & Annotations (1) 39 weeks gestation of SNOMED Code(s): 07727627 Code(s): Z3A.39 - 39 WEEKS GESTATION OF Status: Acute Current Visit: Yes (2) Shoulder dystocia, delivered, current hospitalization SNOMED Code(s): 663019196, 503587212 Code(s): O66.0 - OBSTRUCTED LABOR DUE TO SHOULDER DYSTOCIA Status: Acute Current Visit: Yes - Problem List Review Problem List Initiated/Reviewed/Updated: Yes - My Orders Last 24 Hours: My Active Orders 07/07/21 14:20 Resuscitation Status Routine 07/07/21 Dinner Regular Diet [DIET] 07/07/21 21:53 Acetaminophen [TylenoL] 650 mg PO Q4H PRN Benzocaine/Menthol [Dermoplast Pain Relief 20%-0.5% [place]] See Dose Instructions TOP ASDIRECTED PRN Docusate Sodium [Colace] 100 mg PO BID PRN Ibuprofen [Motrin] 600 mg PO Q6H PRN witch [place] [Tucks] 1 pad TOP ASDIRECTED PRN Heat Therapy [OM.PC] PRN 07/07/21 21:53 Activity as Tolerated [RC] PER UNIT ROUTINE Up ad [place] [RC] ASDIRECTED Vital Signs [RC] ,,, Assess Lochia [WOMSER] Per Unit Routine Assess Uterine Involution [WOMSER] Per Unit Routine Breast Pump [WOMSER] Per Unit Routine Ice Therapy [OM.PC] Per Unit Routine Perineal Care [OM.PC] Per Unit Routine Peripheral IV Discontinue [OM.PC] Routine Sitz Bath [OM.PC] Per Unit Routine 07/08/21 07:35 Acetaminophen/HYDROcodone [[place] 325-10 MG] 1 - 2 tab PO Q6H PRN 07/08/21 21:53 Heat Therapy [OM.PC] PRN - Assessment Assessment:: PPD#1 - Plan Plan:: * Routine cares * Bottle feeding * Will add in lortab as patient with discomfort after suprapubic maneuvers performed yesterday * Discharge home tomorrow
[2021-07-08] MEDS: Acetaminophen/HYDROcodone 325-10 MG Tab PO PRN ×3 (09:05→21:46)
[2021-07-09] MEDS: Witch Hazel Medicated Pads 40/Jar TOP PRN (03:40)
[2021-07-09] MEDS: Ibuprofen 600 MG Tab PO PRN (05:42)
[2021-07-09] MEDS: Acetaminophen/HYDROcodone 325-10 MG Tab PO PRN (06:41)
--- NOTE | 2021-07-09 07:16 | PCM.DCSUM1 ---
Discharge Summary - Discharge Data Discharge Date: 07/09/21 Discharge Disposition: Home, Self-Care 01 Condition: Good - Referral to Home Health Primary Care Physician: Maricel Mcgregor MD - Discharge Diagnosis/Problem(s) (1) 39 weeks gestation of SNOMED Code(s): 22605861 ICD Code: Z3A.39 - 39 WEEKS GESTATION OF Status: Acute Current Visit: Yes (2) Shoulder dystocia, delivered, current hospitalization SNOMED Code(s): 973717286, 904296639 ICD Code: O66.0 - OBSTRUCTED LABOR DUE TO SHOULDER DYSTOCIA Status: Acute Current Visit: Yes - Patient Summary/Data Complications: None Consults: None Recommended Follow-up Testing/Procedures: Follow up in 3 weeks for check Hospital Course: 26 y/o at 39 6/7 wks presented for IOL. Done with pitocin and AROM. Progressed well. Underwent a vaginal delivery complicated by shoulder dystocia relieved with McRobert's and suprapubic pressure. See note. did well. Was discharged home on PPD#2 - Patient Instructions Diet: Regular Diet as Tolerated Activity: As Tolerated Activity, Other: Pelvic rset for 6 weeks Driving: May Drive Today Showering/Bathing: May Shower Showering/Bathing, Other: May Bathe Notify Provider of: Fever, Increased Pain, Swelling and Redness, Drainage, Nausea and/or Vomiting - Discharge Plan *PRESCRIPTION DRUG MONITORING PROGRAM REVIEWED*: No *COPY OF PRESCRIPTION DRUG MONITORING REPORT IN PATIENT [place]: No Home Medications: Home Meds Vit 90/Iron Fum/Folic [ Formula] 1 tab PO DAILY 10/30/16 [History] Docusate Sodium [Colace] 100 mg PO BID PRN cap 07/07/21 [Rx] Ibuprofen [Motrin] 600 mg PO Q6H PRN tablet 07/07/21 [Rx] Referrals: Maricel Mcgregor MD [Primary Care Provider] - (3 weeks for check ) - Discharge Summary/Plan Comment DC Time >30 min.: No Total # of Minutes for Discharge Time: 15 - Patient Data Vitals - Most Recent: Last Vital Signs Temp 36.5 C 07/09/21 02:29 Pulse 69 07/09/21 02:29 Resp 12 07/09/21 02:29 BP 113/51 L 07/09/21 02:29 Pulse Ox 96 07/09/21 02:29 Weight - Most Recent: 82.1 kg Med Orders - Current: Current Medications Acetaminophen (Acetaminophen 325 Mg Tab) 650 mg PO Q4H PRN PRN Reason: mild pain or fever Hydrocodone Bitart/Acetaminophen (Acetaminophen/Hydrocodone 325-10 Mg Tab) 1 - 2 tab PO Q6H PRN PRN Reason: Pain Last Admin: 07/09/21 06:41 Dose: 1 tab Documented by: Benzocaine/Menthol (Benzocaine/Menthol 20%-0.5% [place] 78 Gm Cannister) 0 gm TOP ASDIRECTED PRN PRN Reason: Perineal Comfort Measure Last Admin: 07/07/21 22:06 Dose: 1 canister Documented by: Docusate Sodium (Docusate Sodium 100 Mg Cap) 100 mg PO BID PRN PRN Reason: Constipation Ibuprofen (Ibuprofen 600 Mg Tab) 600 mg PO Q6H PRN PRN Reason: Mild pain or fever Last Admin: 07/09/21 05:42 Dose: 600 mg Documented by: Ginna Thomason (Ginna Thomason Medicated Pads 40/Jar) 1 pad TOP ASDIRECTED PRN PRN Reason: Perineal Comfort Measure Last Admin: 07/09/21 03:40 Dose: 1 tub Documented by: Discontinued Medications Bupivacaine HCl (Bupivacaine 0.25% 10 Ml Sdv) 10 ml .ROUTE .STK-MED ONE Stop: 07/07/21 00:01 Diphenhydramine HCl (Diphenhydramine 50 Mg/Ml Sdv) 25 mg IVPUSH Q6H PRN PRN Reason: pruritis Ephedrine Sulfate (Ephedrine 50 Mg/Ml Sdv) 5 mg IVPUSH ASDIRECTED PRN PRN Reason: Hypotension Fentanyl (Fentanyl 100 Mcg/2 Ml Sdv) 100 mcg EPIDUR Q3H PRN PRN Reason: Pain Last Admin: 07/07/21 17:16 Dose: 100 mcg Documented by: Fentanyl/Bupivacaine HCl (Bupivacaine/Fentanyl/Ns 100 Ml Bag) 100 ml EPIDUR ASDIRECTED PRN PRN Reason: Pain Last Admin: 07/07/21 17:16 Dose: 100 ml Documented by: Lactated Ringer's (Ringers, Lactated) 1,000 mls @ 100 mls/hr IV ASDIRECTED SON Last Admin: 07/07/21 18:55 Dose: 100 mls/hr Documented by: Oxytocin/Lactated Ringer's (Pitocin In Lr 10 Units/1,000 Ml) 10 unit in 1,000 mls @ 500 mls/hr IV .CONTINUOUS SON Oxytocin/Lactated Ringer's (Pitocin In Lr 10 Units/1,000 Ml) 10 unit in 1,000 mls @ 12 mls/hr IV TITRATE SON; Protocol Last Titration: 07/07/21 18:54 Dose: 2 munits/min, 12 mls/hr Documented by: Lidocaine HCl (Lidocaine 1% 50 Ml Mdv) 50 ml INJECT ONETIME ONE Stop: 07/07/21 14:21 Last Admin: 07/08/21 05:25 Dose: Not Given Documented by: Lidocaine/Epinephrine (Lidocaine 1.5% With Epinephrine 1:200,000 5 Ml Amp) 5 ml .ROUTE .STK-MED ONE Stop: 07/07/21 00:01 Lidocaine/Epinephrine (Lidocaine 1.5% With Epinephrine 1:200,000 5 Ml Amp) 5 ml .ROUTE .STK-MED ONE Stop: 07/07/21 00:01 Lidocaine/Epinephrine (Lidocaine 1.5% With Epinephrine 1:200,000 5 Ml Amp) 5 ml .ROUTE .STK-MED ONE Stop: 07/07/21 00:01 Nalbuphine HCl (Nalbuphine 10 Mg/1 Ml Vial) 10 mg IVPUSH Q2H PRN PRN Reason: Pain Ondansetron HCl (Ondansetron 4 Mg/2 Ml Sdv) 4 mg IVPUSH Q4H PRN PRN Reason: Nausea/Vomiting Sodium Chloride (Sodium Chloride 0.9% 10 Ml Syringe) 10 ml FLUSH ASDIRECTED PRN PRN Reason: Keep Vein Open
[2021-07-09 09:18] VITALS: BP 124/77; PULSE 71
== END 2021-07-09 09:38 | disposition home or self-care (01) | DRG 807 ==
LOC: JD.OB 14:15 → OBSVTOIN 20:33 → JD.OB 20:34
PROVIDERS: ADMIT Obstetrics & Gynecology; ATTEND Obstetrics & Gynecology
PROC: 10E0XZZ Delivery of Products of Conception, External Approach (ICD-10-PCS; principal; 2021-07-07)
PROC: 10907ZC Drainage of Amniotic Fluid, Therapeutic from Products of Conception, Via Natural or Artificial Opening (ICD-10-PCS; 2021-07-07)
PROC: 3E033VJ Introduction of Other Hormone into Peripheral Vein, Percutaneous Approach (ICD-10-PCS; 2021-07-07)
PROC: 3E0R3BZ Introduction of Anesthetic Agent into Spinal Canal, Percutaneous Approach (ICD-10-PCS; 2021-07-07)
PROC: 00HU33Z Insertion of Infusion Device into Spinal Canal, Percutaneous Approach (ICD-10-PCS; 2021-07-07)
DX: O66.0 Obstructed labor due to shoulder dystocia (principal); Z37.0 Single live birth; O99.62 Diseases of the digestive system complicating childbirth; K21.9 Gastro-esophageal reflux disease without esophagitis; O99.02 Anemia complicating childbirth; Z20.822 Contact with and (suspected) exposure to COVID-19; D64.9 Anemia, unspecified; Z87.891 Personal history of nicotine dependence; Z3A.39 39 weeks gestation of pregnancy
CPT/HCPCS: 01965; 36415; 51702; 59025; 59409; 85027; 86592; 86850; 86900; 86901; A9270-GY; J2590; J3010; J3490; J7120; U0002